=== PATIENT | male | born 1995 | race Caucasian/White ===

== ENCOUNTER 2019-01-16 14:25 | Emergency (ER) | payer BC, SELFPAY ==
[2019-01-16 14:31] VITALS: BP 133/74; PULSE 94; RESP 16; TEMP 36.8; O2SAT 98; BMI 25.8
[2019-01-16 14:42] VITALS: BP 146/84; PULSE 78; RESP 18; TEMP 36.8; O2SAT 99; BMI 26.6
--- NOTE | 2019-01-16 14:52 | HMH.EDUTC ---
[facility] [place] Clinical Impression: UTI (urinary tract infection) Qualifiers: Urinary tract infection type: site unspecified Hematuria presence: with hematuria Qualified Code(s): N39.0 - Urinary tract infection, site not specified Disposition: Home, Self-Care Condition on Discharge: Good Instructions: Urinary Tract Infection, Phenazopyridine Additional Instructions: Drink plenty of water. Take the medications as prescribed. The pyridium will make your urine turn orange. This is an expected side effect. If your symptoms are getting worse, please return and go thru the ER. Follow up with your regular doctor. Prescriptions: Sulfamethoxazole/Trimethoprim [Bactrim DS tablet] 1 each PO BID 10 Days #20 tab Phenazopyridine HCl [Pyridium 200mg Tablet] 200 pow PO TID #6 tab Referrals: Gerry Martinez MD [Primary Care Provider] - Time of Disposition: 15:09 Medical Decision Making - Medical Records Medical records reviewed: Yes: I reviewed the patient's medical records. - Nii Inquiry Pt receiving controlled substance: No Nii was queried for this patient: No Vital Signs: 01/16/19 14:31 01/16/19 14:42 01/16/19 15:13 Temperature 98.2 F 98.3 F 98.3 F Temperature Source Oral Oral Pulse Rate 78 Pulse Rate [Left Radial] 94 H 78 Respiratory Rate 16 18 18 Blood Pressure 146/84 H Blood Pressure [Right Arm] 133/74 146/84 H Blood Pressure Mean [Right Arm] 93 104 Blood Pressure Source [Right Arm] Automatic Cuff Automatic Cuff Blood Pressure Position [Right Arm] Sitting Sitting 02 Sat by Pulse Oximetry 98 99 Oxygen Delivery Method Room Air Room Air - Lab Data Lab results reviewed: Yes: I reviewed the patient's lab results. Lab Results 01/16/19 14:41: Urine Color Dark yellow, Urine Appearance Clear, Urine pH 6.0, Ur Specific [place] 1.030, Urine Protein Negative, Urine Glucose (UA) Negative, Urine Ketones Negative, Urine Blood 1+, Urine Nitrate Negative, Urine Bilirubin Negative, Urine Urobilinogen 1, Ur Leukocyte Esterase Negative [facility] [place] - General Stated complaint: poss kidney stone Time Seen by Provider: 01/16/19 14:53 Mode of Arrival: Ambulatory Source of Information: Patient Limitations: No Limitations Description of Symptoms (Recalled from Triage Doc. by RN): PT C/O PAINFUL URINATION THAT BEGAN YESTERDAY. PT ADVISES THAT AFTER URINATING YESTERDAY, HE NOTICED BLOOD AT THE TIP OF HIS PENIS ON TWO SEPARATE OCCASIONS HEENT Symptoms (Recalled from RN notes): No Resp Symptoms (Recalled from RN notes): No Skin Symptoms (Recalled from RN notes): No MS Symptoms (Recalled from RN notes): No Functional Status (Recalled from RN notes): N/A - History of Present Illness Provider Complaint: He denies any back or abdominal pain. He denies a known history of kidney stones. He denies any unprotected sex or any discharge other than the 2 episodes of blood. - Related Data Previous Rx's Medication Instructions Recorded ondansetron 4 mg disintegrating 4 mg PO TID PRN #10 tab 09/28/18 tablet amoxicillin 500 mg capsule 500 mg PO Q12H 10 Days #20 cap 09/29/18 promethazine 12.5 mg tablet 12.5 mg PO Q6H PRN 3 Days #12 tab 09/29/18 Phenazopyridine HCl [Pyridium 200 pow PO TID #6 tab 01/16/19 200mg Tablet] Sulfamethoxazole/Trimethoprim 1 each PO BID 10 Days #20 tab 01/16/19 [Bactrim DS tablet] Allergies Allergy/AdvReac Type Severity Reaction Status Date / Time No Known Allergies Allergy Unverified 09/29/18 11:38 - Worker's Comp Is this a Worker's Comp case?: No [facility] History - Hepatitis A Screen Drug use history?: No High risk sexual behaviors?: No History of sexually transmitted infection?: No Currently employed?: No Childcare worker?: No Do you have indoor plumbing?: Yes Do you have electricity?: Yes Attestation statement:: This patient has been screened for Hepatitis A risk factors. I have reviewed the patient's past medical history: Yes Other Surgeries: Yes: No
[2019-01-16 14:55] LABS: Glucose,Urine (UA) Negative (Negative); Ketones,Urine Negative (Negative); Protein,Urine Negative (Negative)
[2019-01-16 14:59] LABS: Bilirubin,Urine Negative (Negative); Blood, Urine 1+ (Negative)
[2019-01-16 15:00] LABS: Color,Urine Dark Yellow (Yellow); UTC Leukocyte Esterase,Urine Negative (Negative); UTC Nitrate,Urine Negative (Negative); Urobilinogen,Urine 1 EU/dl (0.2)
--- NOTE | 2019-01-16 15:00 | ED_ITS ---
[facility] [place] Impression: UTI (urinary tract infection) Qualifiers: Urinary tract infection type: site unspecified Hematuria presence: with hematuria Qualified Code(s): N39.0 - Urinary tract infection, site not specified Disposition: Home, Self-Care Condition on Discharge: Good Instructions: Urinary Tract Infection, Phenazopyridine Additional Instructions: Drink plenty of water. Take the medications as prescribed. The pyridium will make your urine turn orange. This is an expected side effect. If your symptoms are getting worse, please return and go thru the ER. Follow up with your regular doctor. Prescriptions: Sulfamethoxazole/Trimethoprim [Bactrim DS tablet] 1 each PO BID 10 Days #20 tab Phenazopyridine HCl [Pyridium 200mg Tablet] 200 pow PO TID #6 tab Referrals: Gerry Martinez MD [Primary Care Provider] - Time of Disposition: 15:09 Medical Decision Making - Medical Records Medical records reviewed: Yes: I reviewed the patient's medical records. - Nii Inquiry Pt receiving controlled substance: No Nii was queried for this patient: No Vital Signs: 01/16/19 14:31 01/16/19 14:42 01/16/19 15:13 Temperature 98.2 F 98.3 F 98.3 F Temperature Source Oral Oral Pulse Rate 78 Pulse Rate [Left Radial] 94 H 78 Respiratory Rate 16 18 18 Blood Pressure 146/84 H Blood Pressure [Right Arm] 133/74 146/84 H Blood Pressure Mean [Right Arm] 93 104 Blood Pressure Source [Right Arm] Automatic Cuff Automatic Cuff Blood Pressure Position [Right Arm] Sitting Sitting 02 Sat by Pulse Oximetry 98 99 Oxygen Delivery Method Room Air Room Air - Lab Data Lab results reviewed: Yes: I reviewed the patient's lab results. Lab Results 01/16/19 14:41: Urine Color Dark yellow, Urine Appearance Clear, Urine pH 6.0, Ur Specific [place] 1.030, Urine Protein Negative, Urine Glucose (UA) Negative, Urine Ketones Negative, Urine Blood 1+, Urine Nitrate Negative, Urine Bilirubin Negative, Urine Urobilinogen 1, Ur Leukocyte Esterase Negative [facility] [place] General Stated complaint: poss kidney stone Time Seen by Provider: 01/16/19 14:53 Mode of Arrival: Ambulatory Source of Information: Patient Limitations: No Limitations Description of Symptoms (Recalled from Triage Doc. by RN): PT C/O PAINFUL URINATION THAT BEGAN YESTERDAY. PT ADVISES THAT AFTER URINATING YESTERDAY, HE NOTICED BLOOD AT THE TIP OF HIS PENIS ON TWO SEPARATE OCCASIONS HEENT Symptoms (Recalled from RN notes): No Resp Symptoms (Recalled from RN notes): No Skin Symptoms (Recalled from RN notes): No MS Symptoms (Recalled from RN notes): No Functional Status (Recalled from RN notes): N/A - History of Present Illness Provider Complaint: He denies any back or abdominal pain. He denies a known history of kidney stones. He denies any unprotected sex or any discharge other than the 2 episodes of blood. - Related Data Previous Rx's Medication Instructions Recorded ondansetron 4 mg disintegrating 4 mg PO TID PRN #10 tab 09/28/18 tablet amoxicillin 500 mg capsule 500 mg PO Q12H 10 Days #20 cap 09/29/18 promethazine 12.5 mg tablet 12.5 mg PO Q6H PRN 3 Days #12 tab 09/29/18 Phenazopyridine HCl [Pyridium 200 pow PO TID #6 tab 01/16/19 200mg Tablet] Sulfamethoxazole/Trimethoprim 1 each
[2019-01-16 15:01] LABS: Apearance,Urine Clear (Clear)
[2019-01-16 15:13] VITALS: BP 146/84; PULSE 78; RESP 18; TEMP 36.8; O2SAT 99
== END 2019-01-16 15:15 | disposition home or self-care (01) ==
PROVIDERS: Emergency Provider Nurse Practitioner Family; PCP Family Medicine
DX: N30.01 Acute cystitis with hematuria (principal)
CPT/HCPCS: 81003; 99201

== ENCOUNTER 2021-01-13 22:45 | Observation (INO) | payer BC, SELFPAY ==
[2021-01-13 22:47] VITALS: BP 136/70; PULSE 107; RESP 16; TEMP 37.1; O2SAT 97; BMI 25.8
[2021-01-13 22:56] VITALS: BMI 25.8
--- NOTE | 2021-01-13 22:57 | CT_ITS ---
PROCEDURE INFORMATION: Exam: CT Abdomen And Pelvis With Contrast Exam date and time: 01/13/2021 10:57 PM Age: 25 years old Clinical indication: Abdominal pain; Localized; Right lower quadrant (rlq); Patient HX: Rlq pain, onset 1400 TECHNIQUE: Imaging protocol: Computed tomography of the abdomen and pelvis with contrast. Radiation optimization: All CT scans at this facility use at least one of these dose optimization techniques: automated exposure control; mA and/or kV adjustment per patient size (includes targeted exams where dose is matched to clinical indication); or iterative reconstruction. Contrast material: ISOVUE; Contrast volume: 75 ml; Contrast route: IV; COMPARISON: No relevant prior studies available. FINDINGS: Lungs: The visualized lung bases are clear. Pleural spaces: There are no pleural effusions. Heart: The visualized portions of the heart are unremarkable. There is no evidence of pericardial fluid collections. Mediastinal space: Apparent mild distal esophageal wall thickening could be on the basis of incomplete distension, small hiatal hernia but cannot exclude mild esophagitis. Liver: There is diffuse decrease in hepatic parenchymal density consistent with fatty infiltration. Gallbladder and bile ducts: The gallbladder is normal. Pancreas: The pancreas is normal. Spleen: There is mild nonspecific splenomegaly. An accessory splenule is present. Adrenal glands: The adrenal glands are normal. Kidneys and ureters: The kidneys are normal. Stomach and bowel: There is a moderate degree of residual ingested material within the stomach. The duodenum appears normal. Lack of gastrointestinal contrast limits evaluation of bowel. The colon is normal. Appendix: The mid appendix is mildly prominent measuring 8.5 mm. The distal appendix measures within range of normal measuring approximately 5.5 mm. A small appendicolith is present in the distal appendix. Cannot exclude minor periappendiceal fat stranding. Intraperitoneal space: No evidence of intraperitoneal free air. There is no evidence of free intraperitoneal or pelvic fluid. Vasculature: The aorta is normal. Lymph nodes: No enlarged lymph nodes. Urinary bladder: There is bladder distension. Reproductive: The prostate and seminal vesicles are normal. Bones/joints: The thoracolumbar spine demonstrates mild degenerative changes at multiple levels. Soft tissues: Unremarkable. Other findings: No focal fluid collections. IMPRESSION: 1. Mild prominence to the mid appendix and small appendicolith in normal caliber distal appendix. There may be very mild periappendiceal fat stranding. Cannot exclude mild/early appendicitis. Correlate clinically. 2. Fatty hepatic infiltration. 3. Mild splenomegaly. 4. Apparent mild distal esophageal wall thickening consistent with esophagitis, incomplete distention or possibly small hiatal hernia. Cannot entirely exclude neoplastic process in the appropriate clinical setting. Correlate clinically.
[2021-01-13 23:03] LABS: Adenovirus,PCR Not Detected (NotDetected); Bordetella Pertussis Not Detected (NotDetected); Chlamydophila Pneumoniae, PCR Not Detected (NotDetected); Coronavirus 19, PCR Not Detected (NotDetected); Coronavirus 229E Not Detected (NotDetected); Coronavirus NL63 Not Detected (NotDetected); Coronavirus OC43 Not Detected (NotDetected); Coronovirus HKU1,PCR Not Detected (NotDetected); Human Metapneumovirus Not Detected (NotDetected); Influenza A, PCR Not Detected (NotDetected); Influenza AH1, 2009 Not Detected (NotDetected); Influenza AH1, PCR Not Detected (NotDetected); Influenza AH3,PCR Not Detected (NotDetected); Influenza B, PCR Not Detected (NotDetected); Mycoplasma Pneumoniae, PCR Not Detected (NotDetected); Parainfluenza 1, PCR Not Detected (NotDetected); Parainfluenza 2, PCR Not Detected (NotDetected); Parainfluenza 3, PCR Not Detected (NotDetected); Parainfluenza 4, PCR Not Detected (NotDetected); Respiratory Syncytial Virus Not Detected (NotDetected); Rhinovirus/Enterovirus Not Detected (NotDetected)
--- NOTE | 2021-01-13 23:16 | HMH.EDNVD ---
ED Disposition Clinical Impression: Acute appendicitis Qualifiers: Acute appendicitis type: unspecified acute appendicitis type Qualified Code(s): K35.80 - Unspecified acute appendicitis Disposition: Admitted as Observation Condition on Discharge: Good Instructions: DI for Acute Abdominal Pain Referrals: Gerry Martinez MD [Primary Care Provider] - - Critical Care Critical Care Time: No Attestation: On 01/13/21, the high probability of a clinically significant, sudden or life threatening deterioration of the following system(s) required my full and direct attention, intervention and personal management. The time I documented below is in addition to time spent performing reported procedures but includes the following listed in this critical care notation. Medical Decision Making - Medical Records Medical records reviewed: Yes: I reviewed the patient's medical records. - Nii Inquiry Pt receiving controlled substance: No Vital Signs: 01/13/21 22:47 01/13/21 23:52 Temperature 98.8 F Temperature Source Oral Pulse Rate 91 H Pulse Rate [Left Radial] 107 H Respiratory Rate 16 Blood Pressure 135/67 Blood Pressure [Right Arm] 136/70 Blood Pressure Mean [Right Arm] 92 Blood Pressure Source [Right Arm] Automatic Cuff Blood Pressure Position [Right Arm] Supine 02 Sat by Pulse Oximetry 97 97 Oxygen Delivery Method Room Air - Lab Data Lab results reviewed: Yes: I reviewed the patient's lab results. Lab Results 01/13/21 23:02: WBC 6.9, RBC 4.43 L, Hgb 14.7, Hct 42.4, MCV 95.9 H, MCH 33.1 H, MCHC 34.6, RDW 14.9, Plt Count 75 L, MPV 8.5, Neut % (Auto) 74.0, Lymph % (Auto) 17.2, [place] % (Auto) 6.0, Eos % (Auto) 2.5, Baso % (Auto) 0.3, Neut # (Auto) 5.1, Lymph # (Auto) 1.2, [place] # (Auto) 0.4, Eos # (Auto) 0.2, Baso # (Auto) 0.0 01/13/21 23:02: Sodium 143, Potassium 4.0, Chloride 106, Carbon Dioxide 24, Anion Gap 17.0 H, BUN 12, Creatinine 0.80, Estimated Creat Clear 155, Estimated GFR 119, Est GFR ( Amer) 144, Glucose 94, Calcium 8.9, Total Bilirubin 0.6, AST 49, ALT 61, Alkaline Phosphatase 93, C-Reactive Protein 8.3 H, Total Protein 7.9, Albumin 4.7, Globulin 3.2, Albumin/Globulin Ratio 1.5, Amylase 73, Lipase 124 01/13/21 23:02: ESR 20 H 01/13/21 23:02: Procalcitonin 0.082 01/13/21 23:02: Plasma/Serum Alcohol 152 H Result diagrams: 01/13/21 23:02 01/13/21 23:02 Orders (Tests/Meds): ED MEDICATIONS Generic Name Dose Route Start Last Admin Trade Name Freq PRN Reason Stop Dose Admin Lactated Ringer's 1,000 mls @ 999 mls/hr 01/13/21 23:15 01/13/21 23:11 Lactated Ringer's 1000 Ml Bag IV 01/14/21 00:15 999 mls/hr .Q1H1M MANE Administration Discontinued Medications Generic Name Dose Route Start Last Admin Trade Name Freq PRN Reason Stop Dose Admin Iopamidol 75 ml 01/13/21 23:45 01/13/21 23:46 Iopamidol-370 (76%);100ml Bottle IV 01/13/21 23:46 75 ml ONCE ONE Administration Ketorolac Tromethamine 30 mg 01/13/21 23:03 01/13/21 23:11 Ketorolac 30mg/Ml Vial IV 01/13/21 23:04 30 mg ONCE ONE Administration Sodium Chloride 10 ml 01/13/21 23:45 01/13/21 23:45 Sodium Chloride 0.9% 10ml Syr (Rad Only) IV 01/13/21 23:46 10 ml ONCE ONE Administration ORDERS Category Date Time Status Full Resp Panel w/COVID ([facility]) Routine Lab 01/13/21 23:00 Received Urinalysis and Microscopic Stat Lab 01/13/21 22:57 Ordered - CT Data CT Scan: Abdomen, Pelvis Time Received: 00:[address] Reviewed: Yes: I have viewed the radiologist's interpretation Preliminary Findings: Abnormal (early appendicitis ) - Physician Consults Physician Consulted: andre Reason -: Admission Medical Decision Narrative: exam consistent with early appendicitis and ct suggests same Nausea/Vomiting/Diarrhea HPI - General Chief complaint: Abdominal Pain Stated complaint: Pain R Side Time Seen by Provider: 01/13/21 22:55 Mode of Arrival: Ambulatory Source of Information: [place]
[2021-01-13 23:18] LABS: Basophils % 0.3 % (0.1-2.0); Eosinophils # 0.2 K/mm3 (0.0-0.4); Eosinophils % 2.5 % (0.1-12.0); Hematocrit 42.4 % (42.0-52.0); Hemoglobin 14.7 g/dL (14.1-18.0); Lymphocytes # 1.2 K/mm3 (0.7-4.5); Lymphocytes % 17.2 % (10-50); Mean Corpuscular HGB Conc 34.6 g/dL (31.8-35.4); Mean Corpuscular Hemoglobin 33.1 pg (27.0-31.2); Mean Corpuscular Volume 95.9 fl (80-94); Mean Platelet Volume 8.5 fl (7.4-10.4); Monocytes # 0.4 K/mm3 (0.1-1.0); Neutrophils # 5.1 K/mm3 (1.8-7.8); Platelet Count 75 K/mm3 (142-424); Red Blood Count 4.43 M/mm3 (4.60-6.20); Red Cell Distribution Width 14.9 % (11.5-17.5); White Blood Count 6.9 K/mm3 (4.8-10.8)
[2021-01-13 23:24] LABS: Alanine Aminotransferase 61 U/L (12-78); Albumin Level 4.7 g/dl (3.5-5.0); Albumin/Globulin Ratio 1.5 (1.1-1.8); Alkaline Phosphatase 93 U/L (38-126); Amylase 73 U/L (30-110); Aspartate Amino Transferase 49 U/L (17-59); Bilirubin,Total 0.6 mg/dl (0.2-1.3); Blood Urea Nitrogen 12 mg/dl (9-20); Calcium 8.9 mg/dl (8.4-10.2); Carbon Dioxide 24 mmol/L (22.0-30.0); Chloride 106 mmol/L (98-107); Creatinine Clearance Estimated 155 mL/min (50-200); Estimated Glomerular Filt Rate 119 ml/min (>60); GFR (African American) 144 ML/MIN (>60); Globulin 3.2 g/dL (1.3-3.2); Glucose 94 mg/dl (74-100); Lipase 124 U/L (23-300); Sodium 143 mmol/L (136-145); Total Protein,Serum 7.9 g/dl (6.3-8.2)
--- NOTE | 2021-01-13 23:25 | PC.NURSE ---
PATIENT TO CT
[2021-01-13 23:29] LABS: C-Reactive Protein 8.3 mg/L (0-4)
[2021-01-13 23:38] LABS: Ethyl Alcohol 152 mg/dl (0-10)
[2021-01-13 23:42] LABS: Erythrocyte Sedimentation Rate 20 mm/hr (0-15)
[2021-01-13 23:43] LABS: Procalcitonin 0.082 ng/mL (0.0-2.0)
[2021-01-13 23:52] VITALS: BP 135/67; PULSE 91; O2SAT 97
[2021-01-14] VITALS (19 sets, daily range): BP systolic 109–133; BP diastolic 49–72; PULSE 59–88; RESP 14–18; TEMP 36.6–43; O2SAT 96–100; BMI 25.6
--- NOTE | 2021-01-14 00:33 | PC.NURSE ---
speaking with HOME at this time
--- NOTE | 2021-01-14 00:44 | PC.NURSE ---
md at bedside explaining to patient dx of early appendicitis . pt states acknowledgement of consequences of leaving facility AMA if he chooses to do so. mom at bedside during conversation. md informs both that patient needs to be sober to make a more adequate decision re: this situation. states he wants to talk with his mom alone before making a decision.
--- NOTE | 2021-01-14 02:07 | PC.NURSE ---
Report called to Wendie Rai RN at this time
--- NOTE | 2021-01-14 02:17 | PC.NURSE ---
PT ARRIVED TO FLOOR VIA W/C FROM ED STAFF AT 0216
[2021-01-14 03:28] LABS: Microscopic, Urine URINE MICROSCOPIC (MICROSCOPIC)
[2021-01-14 03:29] LABS: Appearance,Urine SL CLOUDY (Clear); Bilirubin,Urine Negative (Negative); Blood, Urine Negative (Negative); Color,Urine YELLOW (Yellow); Glucose,Urine (UA) Negative (Negative); Ketones,Urine TRACE (Negative); Leukocyte Esterase,Urine Negative (Negative); Nitrate,Urine Negative (Negative); PH,Urine 6.5 (5.0-8.5); Protein,Urine Negative (Negative); Specific Gravity, Urine 1.015 (1.005-1.030)
[2021-01-14 04:13] LABS: Bacteria,Urine 1+ /lpf; WBC,Urine Occasional #/hpf (0-3)
--- NOTE | 2021-01-14 05:57 | PC.NURSE ---
Patient admitted for acute Appy and is being observed. [employer], patient had numerous beers and ETOH level 152. Patient has no PMHx and is not on any medication. Patient's pain located RLQ. No consent order as of late. Will continue to monitor for any acute changes.
--- NOTE | 2021-01-14 07:13 | PC.NURSE ---
Surgery team called in.Spoke with Mayela Robles and Brooke.
--- NOTE | 2021-01-14 07:42 | HMH.GSHP ---
HPI HPI: She is a 25-year-old male. He states that yesterday afternoon around 2 PM he began experiencing pressure-like right lower quadrant abdominal pain. This had persisted. It became more severe and he had presented to the emergency department late yesterday evening. He was found to have a normal white blood cell count. However CT scan revealed findings of an appendicolith with mild stranding consistent with early appendicitis. Patient was found to be significantly tender in the right lower quadrant. Surgery was contacted and he was admitted for inpatient management. Of note, the patient had reportedly drank multiple beers yesterday and his blood alcohol content on arrival was 152. [facility] History I have reviewed the patient's past medical history: Yes *Have you ever received a pneumonia vaccine?: No *Have you received a flu vaccine this season?: Yes Other Surgeries: Yes: No Previous Surgery - *Social History Last grade of school completed: High school graduate Smoking Status: Current every day smoker Tobacco Type: e-cigarettes Alcohol Intake: current Alcohol Intake Frequency:: a few times a week Substance Use Type: denies use *Occupational Status:: employed Housing: house Household Members: family *Travel in the last 8 weeks: None Family Hx:: Cancer Review of Systems - Review of Systems Review of systems:: pertinent systems reviewed and negative unless documented below - *Neurologic Denies localized weakness Meds Home Medications Medication Instructions Recorded Confirmed Type No Known Home Medications 01/13/21 01/13/21 History Allergies Allergy/AdvReac Type Severity Reaction Status Date / Time No Known Allergies Allergy Verified 08/02/20 13:08 Exam Vital signs and Labs for Last 24 Hours: Temp Pulse Resp BP Pulse Ox 97.8 F 69 16 117/49 L 96 01/14/21 04:00 01/14/21 04:00 01/14/21 04:00 01/14/21 04:00 01/14/21 04:00 Laboratory Results - last 24 hr 01/13/21 23:00: Chlamy pneumoniae PCR Not detected, Adenovirus (PCR) Not detected, B. pertussis DNA (PCR) Not detected, Coronavirus OC43 (PCR) Not detected, Coronavirus HKU1 (PCR) Not detected, Coronavirus 229E (PCR) Not detected, SARS-CoV-2 (PCR) Not detected, Coronavirus NL63 (PCR) Not detected, Human Metapneumovir PCR Not detected, Influenza A (H1) PCR Not detected, Influ A (H1N1/09) PCR Not detected, Influenza A (H3) PCR Not detected, Influenza Type A (PCR) Not detected, Influenza Type B (PCR) Not detected, M. pneumoniae (PCR) Not detected, Parainfluenza 1 (PCR) Not detected, Parainfluenza 2 (PCR) Not detected, Parainfluenza 3 (PCR) Not detected, Parainfluenza 4 (PCR) Not detected, RSV (PCR) Not detected, Entero/Rhino (PCR) Not detected 01/13/21 23:02: WBC 6.9, RBC 4.43 L, Hgb 14.7, Hct 42.4, MCV 95.9 H, MCH 33.1 H, MCHC 34.6, RDW 14.9, Plt Count 75 L, MPV 8.5, Neut % (Auto) 74.0, Lymph % (Auto) 17.2, [place] % (Auto) 6.0, Eos % (Auto) 2.5, Baso % (Auto) 0.3, Neut # (Auto) 5.1, Lymph # (Auto) 1.2, [place] # (Auto) 0.4, Eos # (Auto) 0.2, Baso # (Auto) 0.0 01/13/21 23:02: Sodium 143, Potassium 4.0, Chloride 106, Carbon Dioxide 24, Anion Gap 17.0 H, BUN 12, Creatinine 0.80, Estimated Creat Clear 155, Estimated GFR 119, Est GFR ( Amer) 144, Glucose 94, Calcium 8.9, Total Bilirubin 0.6, AST 49, ALT 61, Alkaline Phosphatase 93, C-Reactive Protein 8.3 H, Total Protein 7.9, Albumin 4.7, Globulin 3.2, Albumin/Globulin Ratio 1.5, Amylase 73, Lipase 124 01/13/21 23:02: ESR 20 H 01/13/21 23:02: Procalcitonin 0.082 01/13/21 23:02: Plasma/Serum Alcohol 152 H 01/14/21 03:20: Urine Color Yellow, Urine Appearance Sl cloudy, Urine pH 6.5, Ur Specific [place] 1.015, Urine Protein Negative, Urine Glucose (UA) Negative, Urine Ketones Trace, Urine Blood Negative, Urine Nitrate Negative, Urine Bilirubin Negative, Urine Urobilinogen 1.0, Ur Leukocyte Esterase Negative, Urine WBC Occasional, Urine Bacteria 1+ I & O for Last 24 hours: Intake & Output 01/11/2101/12
[2021-01-14 07:48] LABS: Basophils # 0.1 K/mm3 (0-0.2); Hematocrit 39.1 % (42.0-52.0); Monocytes # 0.3 K/mm3 (0.1-1.0); Neutrophils % 57.5 % (37.0-80.0); Platelet Count 61 K/mm3 (142-424)
[2021-01-14 07:59] LABS: Basophils % 1.4 % (0.1-2.0); Eosinophils # 0.1 K/mm3 (0.0-0.4); Eosinophils % 3.4 % (0.1-12.0); Lymphocytes # 1.3 K/mm3 (0.7-4.5); Lymphocytes % 30.8 % (10-50); Mean Corpuscular HGB Conc 32.9 g/dL (31.8-35.4); Mean Corpuscular Hemoglobin 33.5 pg (27.0-31.2); Mean Corpuscular Volume 101.8 fl (80-94); Mean Platelet Volume 14.6 fl (7.4-10.4); Monocytes % 7.1 % (1.7-9.3); Neutrophils # 2.4 K/mm3 (1.8-7.8); Red Blood Count 3.84 M/mm3 (4.60-6.20); White Blood Count 4.2 K/mm3 (4.8-10.8)
[2021-01-14 08:08] LABS: Hemoglobin 12.9 g/dL (14.1-18.0)
--- NOTE | 2021-01-14 08:22 | HMH.ANESCL ---
[facility] Anesthesia Checklist - Patient Identification Patient Identification: Arm Band - Structural Data Admitted From: Inpatient Planned Operative Procedure/s: laparoscopic appendectomy Consent for Planned Operative Procedure(s) Verified: Yes Verified Documents: Surgical Consent, History and Physical - NPO Status Verified Time NPO: 00:00 - Additional verifications Anesthesia Reactions: No - Airway Assessment C-Spine Mobility Assessed: Yes (mp2) TMJ Mobility Assessed: Yes Dentition: Good Dentition - Neurological Assessment Level of Consciousness: Awake, Alert - Anesthesia Plan Anesthesia Risk discussed: Yes Anesthesia Plan: Verified ASA Class: II (e) Anesthesia Type: General [facility] History I have reviewed the patient's past medical history: Yes *Have you ever received a pneumonia vaccine?: No *Have you received a flu vaccine this season?: Yes Anesthesia experience/problems:: nac Other Surgeries: Yes: No Previous Surgery - *Social History Last grade of school completed: High school graduate Smoking Status: Current every day smoker Tobacco Type: e-cigarettes Alcohol Intake: current Alcohol Intake Frequency:: a few times a week Substance Use Type: denies use *Occupational Status:: employed Housing: house Household Members: family *Travel in the last 8 weeks: None Family Hx:: Cancer
--- NOTE | 2021-01-14 09:22 | P.OP_ITS ---
Date of procedure: 01/14/21 Pre-op Diagnosis:: Acute appendicitis Post-op Diagnosis:: Same Procedure performed:: Laparoscopic appendectomy Surgeon:: Demetri Andrade MD [employer] OPERATOR:: Emory Marroquin Anesthesia: IVAN Estimated blood loss (mL): 15 Clinical Note:: Patient is a 25-year-old male. He states that yesterday afternoon around 2 PM he began experiencing pressure-like right lower quadrant abdominal pain. This had persisted. It became more severe and he had presented to the emergency department late yesterday evening. He was found to have a normal white blood cell count. However CT scan revealed findings of an appendicolith with mild stranding consistent with early appendicitis. Patient was found to be significantly tender in the right lower quadrant. Surgery was contacted and he was admitted for inpatient management. Of note, patient did have a blood alcohol level of 152 upon presentation. White blood cell count was normal. Platelet count was 75,000. On examination he had tenderness with guarding in the right lower quadrant. Repeat CBC revealed normal white blood cell count with platelet count of 61,000. Operative findings:: He had an inflamed indurated appendix. It was located in the right upper abdomen as the cecum is in the upper abdomen. Appendix was inflamed and somewhat of a corkscrew fashion twisted upon itself due to its peritoneal attachments. He had a somewhat nodular liver. Operative note:: Consent was obtained. Patient was taken to the operating room. He was given preoperative intravenous antibiotics. In the operating room he was placed in a supine position. General anesthesia was induced via endotracheal tube. Lopez catheter was placed. Abdomen was prepped and draped in the standard surgical fashion. Subumbilical skin incision was made and while performing abdominal wall lift Veress needle was inserted. CO2 pneumoperitoneum was achieved to 15 mmHg. 12 mm optical trocar was inserted at the umbilicus. 5 mm trocar was inserted in suprapubic location. Additional 5 mm trocar was inserted in the right upper abdomen. The cecum was essentially in the right upper quadrant. To allow for visualization he was actually positioned in reverse Trendelenburg with left side down. Ultimately the appendix was identified. The appendix was mod erately inflamed and indurated, particularly toward its tip. Appendix was somewhat corkscrewed on itself. It was grasped with an endoscopic [place]. The peritoneal adhesions creating the corkscrew effect were divided with JOHN ultrasonic harmonic aranza. Ultimately dissection was carried down dividing the mesoappendix with JOHN ultrasonic harmonic aranza with care taken to coagulate the appendiceal artery and the process. Appendix was uninflamed at its base. It had a rather wide base. The appendix was divided at its base with an endoscopic ANGELLA linear cutting stapling device. The appendix was placed within an Endo Catch retrieval device and removed from the peritoneal cavity via the umbilical trocar site. Appendiceal stump (staple line) was inspected for hemostasis and integrity which was assured. Limited irrigation was performed of the pericecal location. There was good hemostasis. Trochars were then removed as CO2 pneumoperitoneum was evacuated. Fascia at the umbilicus was closed with a couple of interrupted 0 Vicryl sutures. Local anesthetic was infiltrated. Skin incisions were closed with 4-0 Monocryl in a subcuticular fashion. Steri- Strips and dressings were applied. Condition: stable Disposition: PACU Specimens:: Appendix Complications:: None immediately apparent
--- NOTE | 2021-01-14 09:39 | HMH.ANESI ---
[facility] Anesthesia Record Part I Intake, IV Amount: 1,200 Estimated blood loss (mL): 10 Urine output (mL): 200 Blood Products used (#): none Blood Pressure: 126/69 SaO2: 96 Pulse Rate: 65 Respiratory Rate: 16 Temperature: 98.4 F Patient is:: Drowsy, Stable Stable to PACU at:: 09:25
--- NOTE | 2021-01-14 10:04 | PC.NURSE ---
0953-detailed report called to BARBARA Hartman 0957-pt transported to 2nd floor room 212 via hospital bed w/jo rails up and left in care of BARBARA Hartman with bed locked in lowest position, vss, pt stable
[2021-01-14 10:23] LABS: Microscopic,Cath URINE MICROSCOPIC (MICROSCOPIC)
[2021-01-14 10:25] LABS: Appearance,Urine/Cath CLEAR (Clear); Bilirubin,Cath Negative (Negative); Blood, Urine/Cath Negative (Negative); Color,Urine/Cath YELLOW (Yellow); Glucose,Urine/Cath (UA) Negative (Negative); Ketones,Urine/Cath Negative (Negative); Leukocyte Esterase,Cath Negative (Negative); Nitrate,Cath Negative (Negative); PH,Urine/Cath 5.5 (5.0-8.5); Protein,Urine/Cath Negative (Negative); Specific Gravity, Urine/Cath 1.025 (1.005-1.030); Urobilinogen,Cath 0.2 EU/dl (0.2)
--- NOTE | 2021-01-14 10:47 | PC.NURSE ---
0800-pt taken to surgery at this time.
--- NOTE | 2021-01-14 10:47 | PC.NURSE ---
1000-pt returned to floor from surgery at this time.
--- NOTE | 2021-01-15 07:43 | HMH.ANESII ---
[facility] Anesthesia Record Part II Discharge Time: 09:55 Destination: Medical Surgical Department PACU nurse assessment reviewed?: Yes Patient Condition:: Good Anesthesia Complications:: None Swallowing reflex intact?: Yes Cyanosis?: No Blood Pressure: 123/71 Pulse Rate: 60 Temperature: 98 F Mental Status: Alert & Oriented Pain level:: 0 Nausea and/or vomitting:: None Intake, IV Amount: 0
[2021-01-15 07:44] VITALS: BP 123/71; PULSE 60; TEMP 36.6
--- NOTE | 2021-01-15 12:28 | P.DS_ITS ---
General - General Admission date:: 01/14/21 Discharge date: 01/14/21 HPI HPI: Patient is a 25-year-old male. He states that around 2 PM on 01/13/21 he began experiencing pressure-like right lower quadrant abdominal pain. This had persisted. It became more severe. It somewhat doubled him over. He had presented to the emergency department late evening on 01/13/21. He was found to have a normal white blood cell count. CT scan revealed findings of prominent mid appendix with distal appendiceal appendicolith and probable fat stranding. Patient was found to be significantly tender in the right lower quadrant. Surgery was contacted and he was admitted for inpatient management. Of note, the patient had reportedly drank multiple beers yesterday and his blood alcohol content on arrival was 152. Hospital Course Hospital Course: Patient was admitted for inpatient stay. Arrangements were made for early urgent appendectomy. He was taken to the operating room in the research investigator of 01/14/2021. He underwent successful laparoscopic appendectomy. He was found to have an inflamed indurated appendix located in the right upper abdomen. Appendix was inflamed and somewhat of a corkscrew fashion twisted upon itself due to its peritoneal attachments. He had a somewhat nodular liver. Please see operative dictation for complete details. Postoperatively he was admitted for continuation of inpatient care. He did extremely well. Several hours after surgery patient was repeatedly asking for discharge home. Arrangements were made for discharge. Please note that platelet count on admission was 75,000 and repeat prior to surgery was 61,000. Objective Vital signs: Temp Pulse Resp BP Pulse Ox 98 F 60 18 123/71 98 01/15/21 07:44 01/15/21 07:44 01/14/21 13:45 01/15/21 07:44 01/14/21 13:45 Discharge Plan - Patient Discharge Instructions ACTIVITY: No heavy lifting DIET: advance to your usual diet Patient Instructions: DI for Appendicitis -- Adult, Appendicitis, DI for Abdominal Pain-Adult, Surgical Site Infection - Follow up Plan Follow up with: Demetri Andrade MD [Staff Physician] - 2 weeks Disposition: Home, Self-Care Condition at discharge:: Improved Home Medications: Home Medications Medication Instructions Recorded Confirmed Type Hydrocod/Acet 5/325 mg [[place] 1 - 2 tab PO Q6HP PRN #13 tab 01/14/21 Rx 5/325mg tablet] Prescriptions/Medication Reconciliation: New Hydrocod/Acet 5/325 mg [[place] 5/325mg tablet] 1 - 2 tab PO Q6HP PRN #13 tab PRN Reason: Moderate Pain - Problem Reconciliation Problems Reviewed?: Yes
== END 2021-01-14 14:20 | disposition home or self-care (01) ==
LOC: ER 01-14 00:56 → 2ND 01-14 02:24
PROVIDERS: Admitting Provider Surgery; Emergency Provider Emergency Medicine; PCP Family Medicine; Visit Provider Surgery
PROC: 0DTJ4ZZ Resection of Appendix, Percutaneous Endoscopic Approach (ICD-10-PCS; CPT 44970; principal; 2021-01-14 08:00)
DX: K35.80 Unspecified acute appendicitis (principal); F17.290 Nicotine dependence, other tobacco product, uncomplicated
CPT/HCPCS: 44970; 74177; 80053; 81001; 82150; 83690; 84145; 85025; 85651; 86140; 87581; 87633; 87798; 96365; 96375; 99284; G0378; J2405; J2710; Q9967

== ENCOUNTER → 2021-08-11 10:23 | Outpatient (CLI) | payer BC, SELFPAY | PROVIDERS: PCP Family Medicine; Visit Provider Nurse Practitioner Family | DX: U07.1 COVID-19 (principal) | CPT/HCPCS: C9803; U0003; U0005 ==

== ENCOUNTER 2022-07-10 15:49 | Emergency (ER) | payer BC, SELFPAY ==
[2022-07-10 16:50] VITALS: BP 129/83; PULSE 75; RESP 20; TEMP 36.4; O2SAT 98; BMI 25.9
--- NOTE | 2022-07-10 17:03 | EXP.UTC ---
Discharge Plan Disposition Patient Disposition: Home, Self-Care Condition: Good Prescriptions Prescriptions: New azithromycin [Zithromax Z-Ritchie] 250 mg tablet See Rx Instructions .ROUTE .COMPLEX 5 Days Qty: 6 0RF Rx Instructions: For 250 mg dose pack: take 500 mg today (day 1), then 250 mg for 4 days (days 2-5) methylprednisolone [Medrol (Ritchie)] 4 mg tablets,dose pack See Rx Instructions .Route .COMPLEX 6 Days Qty: 21 0RF Rx Instructions: taper pack; guaifenesin [Mucinex] 600 mg tablet extended release 12hr 600 mg PO BID PRN (Reason: cough) Qty: 20 0RF Referrals Follow up/Referrals: Provider,Referral, MD [Primary Care Provider] - See instructions Activity Restrictions/Add. Instructions Additional Instructions/Restrictions: *Monitor Temp, Over the counter Motrin or Tylenol as directed/as needed Tylenol every 4 hours and Motrin every 6 hours (as long as your family doctor has told you that you can take it) for fever or pain. and straight to ER if unable to lower temp less than 101.0 after medication given *Warm salt water gargles may help to soothe the throat *Throat Lozenges? *Warm fluids like tea with honey may help to soothe the throat? *Sleep elevated *Humidifier/Vaporizer Your throat swab was sent for culture. Those results are typically sent to your primary care. Be sure to follow up in 2-3 days with your family doctor/primary care physician if no improvement so they can review those result and treat if necessary. If you don?t have a primary care doctor, I recommend you get one but in the mean time, you will have to return to a walk in clinic Follow up IMMEDIATELY for new or worsening symptoms or no Noticeable improvement over the next 48-72 hours. 911 for difficulty breathing or swallowing Clinical Impressions Clinical Impression: Sinusitis Qualifiers: Sinusitis location: unspecified location Chronicity: unspecified Qualified Code(s): J32.9 - Chronic sinusitis, unspecified Stand Alone Forms Stand Alone Forms: Work/School Release Instructions Patient Instructions: Sinusitis, DI for Sinusitis Discharge ED Provider: Melvi Bird [facility] HPI General Stated complaint: Bad allergies, runny nose,Cough Time Seen by Provider: 07/10/22 17:03 History of Present Illness Provider Complaint: Patient states that he started out about a week or so ago with allergies but thinks it may have turned into sinus infection State that he has been having sinus pain and pressure behind his eyes and drainage in the back of his throat that is making him cough Related Data Previous Rx's Medication Instructions Recorded azithromycin 250 mg tablet See Rx Instructions PO .COMPLEX 5 07/10/22 (Zithromax Z-Ritchie) days #6 tabs guaifenesin 600 mg tablet, 600 mg PO BID PRN cough #20 tabs 07/10/22 extended release 12 hr (Mucinex) methylprednisolone 4 mg tablets in See Rx Instructions .Route 07/10/22 a dose pack (Medrol (Ritchie)) .COMPLEX 6 days #21 tabs Allergies Allergy/AdvReac Type Severity Reaction Status Date / Time No Known Allergies Allergy Verified 01/29/21 10:02 [facility] Disclaimer: The information contained in this section may have been updated after the patient was seen, as this information can be updated by other users. Surgical History (Updated 07/10/22 @ 17:03 by Radha Montilla RN) History of appendectomy Social History Smoking Status: Current every day smoker tobacco type: e-cigarettes alcohol intake: current substance use type: denies use current occupational status: employed Travel in the last 8 weeks: None household members: family housing: house ROS Obtained: Yes All systems reviewed & no additional complaints except as documented and Yes Systems reviewed as appropriate & no additional complaints except as documented Constitutional Constitutional: Reports system reviewed and no additional complaints, except as documented and
[2022-07-10 17:08] VITALS: BP 129/83; PULSE 75; RESP 20; TEMP 36.4; O2SAT 98
== END 2022-07-10 17:12 | disposition home or self-care (01) ==
PROVIDERS: Emergency Provider Nurse Practitioner
DX: J32.9 Chronic sinusitis, unspecified (principal)
CPT/HCPCS: 99212; G0463

== ENCOUNTER 2024-02-09 09:53 | Outpatient (CLI) | payer BC, SELFPAY ==
[2024-02-09 18:16] LABS: Microscopic, Urine URINE MICROSCOPIC (MICROSCOPIC)
[2024-02-09 19:58] LABS: Appearance,Urine CLEAR (Clear); Bilirubin,Urine Negative (Negative); Blood, Urine Negative (Negative); Color,Urine YELLOW (Yellow); Glucose,Urine (UA) Negative (Negative); Ketones,Urine Negative (Negative); Leukocyte Esterase,Urine Negative (Negative); Nitrate,Urine Negative (Negative); Protein,Urine Negative (Negative)
[2024-02-14 18:09] LABS: Neisseria gonorrhoeae, NAA Negative (Negative)
== END 2024-02-09 23:59 | disposition home or self-care (01) ==
LOC: LAB.DROPOF 02-10 09:54
PROVIDERS: PCP Student in an Organized Health Care Education/Training Program; Visit Provider Student in an Organized Health Care Education/Training Program
DX: Z20.2 Contact with and (suspected) exposure to infections with a predominantly sexual mode of transmission (principal)
CPT/HCPCS: 81001; 87086; 87491; 87591